=== PATIENT | female | born 1960 | race Caucasian/White ===

== ENCOUNTER 2018-07-02 00:59 | Emergency (ER) | payer SELFPAY ==
[~2018-07-02] VITALS: Ht 165.1 cm; Wt 68.0 kg
[2018-07-02 01:07] VITALS: Ht 165.1 cm; Wt 68.0 kg
[2018-07-02 04:18] VITALS: BP 157/76
== END 2018-07-02 04:19 | disposition home or self-care (01) ==
LOC: ED 00:59
DX: R10.13 Epigastric pain (principal); R11.2 Nausea with vomiting, unspecified; R51 Headache; Z88.1 Allergy status to other antibiotic agents; Z88.2 Allergy status to sulfonamides
CPT/HCPCS: J2270; Q0162